=== PATIENT | female | born 1955 | race Two or more races ===

== ENCOUNTER → 2016-10-18 | Outpatient (CLI) | payer OTHER ==
[~2016-10-18] MED LIST: ACID REDUCER150 MG PO; BIOTIN-D0.5 GM MC; CALCIUM 5001 TAB PO; LAXATIVE5 M1 PO; PRINIVIL20 M1 PO
--- NOTE | ~2016-10-18 | EKG ---
PATIENT: MARTÍN LARA UNIT #: [id number] Ventricular Rate: 73 BPM Atrial Rate: 73 BPM P-R Interval: 124 ms QRS Duration: 92 ms Q-T Interval: 370 ms QTC Calculation(Bezet): 407 ms P Hundred: 79 degrees Calculated R Hundred: 67 degrees Calculated T Hundred: 55 degrees Diagnosis Line: Normal sinus rhythm with sinus arrhythmia Diagnosis Line: Normal ECG Diagnosis Line: No previous ECGs available Diagnosis Line: Confirmed by PARAM RAMOS MD ([id number]) on 10/18/2016 Diagnosis Line: 4:48:02 PM INTERPRETING MD: RACHEL SINGLETON
[2016-10-18 14:52] LABS: ALBUMIN SERUM 4.2 g/dL (3.5-5.0); ALKALINE PHOSPHATASE 80 U/L (32-92); ALT (SGPT) 18 U/L (10-40); AST (SGOT) 19 U/L (10-42); BILIRUBIN,TOTAL 0.4 mg/dL (0.2-2.0); BLOOD UREA NITROGEN 14 mg/dL (9-23); CALCIUM SERUM 9.3 mg/dL (8.4-10.2); CARBON DIOXIDE 30 mmol/L (22-31); CHLORIDE 104 mmol/L (100-111); CREATININE SERUM 0.5 mg/dL (0.6-1.4); GLOM FILT RATE Estimated ABOVE60 mL/min (>60); GLUCOSE FASTING 56 mg/dL (70-110); SODIUM 141 mmol/L (135-145)
== END | disposition home or self-care (01) ==
LOC: CAMB 12:09
PROVIDERS: Surgery
DX: Z01.818 Encounter for other preprocedural examination (principal); R10.11 Right upper quadrant pain
CPT/HCPCS: 36415; 80053; 93005

== ENCOUNTER → 2016-10-25 | Day surgery (SDC) | payer OTHER ==
--- NOTE | ~2016-10-25 | OR ---
Unit #: [id number] #: [id number] Patient: MARTÍN LARA [id number] [address] [place], [place] [address] [id number] MR#: [id number] NAME: MARTÍN LARA ROOM: Date of Procedure: 10/25/2016 Admission Date: 10/25/2016 Surgeon: Kosta Marquez Jr., M.D. : 1955 Attending Physician: Kosta Marquez Jr., M.D. Primary Care Physician: Primary Care Physician No OPERATIVE REPORT INDICATIONS FOR PROCEDURE The patient is a 61-year-old female from [place], who recently has been having symptoms of biliary colic with right upper quadrant abdominal pain. She has been worked up and noted to have evidence of gallstones and it was felt she should have a laparoscopic cholecystectomy since she is symptomatic. She is brought in this time for this procedure at her request. She understands the procedure including the risks, including that of common duct injury, biliary leak, and bleeding, and intra-abdominal organ injury, and consents. Consent has been obtained through an apiarist. PREOPERATIVE DIAGNOSES Chronic cholecystitis and cholelithiasis. POSTOPERATIVE DIAGNOSES 1. Chronic cholecystitis and cholelithiasis. 2. Large left ovarian cyst. ANESTHESIA General with endotracheal intubation and 0.5% Marcaine with epinephrine locally. PROCEDURE PERFORMED Laparoscopic cholecystectomy. DESCRIPTION OF PROCEDURE The patient was positioned in supine position. After being anesthetized and intubated, she was prepped and draped in routine fashion for laparoscopic cholecystectomy. A small infraumbilical incision was made approximately a 1 cm in length. This was carried down to the fascia. The fascia in the umbilicus was lifted with a towel clip, and a Veress needle introduced into the abdomen. The abdomen was then inflated with CO2 gas. A 5-mm port was introduced into the abdomen followed by the camera. There was no evidence of any injury related to introduction of the port of the Veress needle. Brief intra-abdominal exploration was carried out. The patient was noted to have a large left ovarian cyst and chronically inflamed gallbladder. Two 5-mm ports were placed laterally and an 11-mm port just to the right of the upper midline. The gallbladder was lifted. Dissection was carried out on the triangle of Calot, cystic duct which was only approximately 1 to 2 mm in diameter was isolated, hemoclipped x4, and divided approximately a 1 cm from its junction with the common duct. Common duct appeared normal. Cystic artery was identified, hemoclipped Unit #: [id number] #: [id number] Patient: MARTÍN LARA x3, and divided. The gallbladder was then removed from its bed with the hook cautery using a current of 20. After it was released, it was removed through the upper midline incision along with the grasping clamp and the port. The port was replaced. Subhepatic space checked. There was no evidence of any bleeding from the gallbladder bed. The clips on cystic duct and cystic artery were intact with no evidence of any leak or bleeding. At this point, the fascia in the larger port site was approximated with the neoClose technique. CO2 was expressed from the abdomen. The ports were removed. There was no evidence of any bleeding from the port sites. The port sites were injected with 0.5% Marcaine with epinephrine locally. They were then irrigated and after hemostasis was achieved with Bovie cautery, skin edges were approximated with stainless-steel skin clips and skin stapling device. Sterile dressings were applied externally. Estimated blood loss approximately 30 to 40 mL. The patient received less than 1000 mL crystalloid solution during the procedure. Sponges and instruments counts were correct x3. No drains used. No complications. The patient was taken to the recovery room with stable vital signs in satisfactory condition. Dictated by... Kosta Marquez Jr., M.D. JMB/symone TD: 10/26/2016 00:36 JOB #: [id number] OPERATIVE REPORT X Kosta Marquez MD X PROCEDURE OPERATIVE NOTE
== END | disposition home or self-care (01) ==
LOC: CSUR 09:49
DX: K80.10 Calculus of gallbladder with chronic cholecystitis without obstruction (principal); I10 Essential (primary) hypertension; Z90.89 Acquired absence of other organs; Z87.19 Personal history of other diseases of the digestive system; Z91.041 Radiographic dye allergy status; Z79.899 Other long term (current) drug therapy; Z82.49 Family history of ischemic heart disease and other diseases of the circulatory system; Z87.891 Personal history of nicotine dependence
CPT/HCPCS: 82947; 88304; J0690; J1650; J2250; J3010